=== PATIENT | female | born 1985 | race Caucasian/White ===

== ENCOUNTER 2017-11-22 00:19 | Emergency (ER) | payer OTHER ==
--- NOTE | 2017-11-22 01:14 | XRAY Report ---
Reason: pain, injury Procedure Date: 11/22/2017 Accession Number: [id number] / [id number] Procedure: XR - Knee 3 View LT CPT Code: FULL RESULT: EXAM: LEFT KNEE RADIOGRAPHY EXAM DATE: 11/22/2017 12:44 AM. CLINICAL HISTORY: Pain, injury. COMPARISON: None. TECHNIQUE: 3 views. FINDINGS: Bones: Normal. No fractures or bone lesions. Joints: Moderate effusion. No lipohemarthrosis. The joint spaces are preserved. Soft Tissues: Normal. No soft tissue swelling. IMPRESSION: Moderate joint effusion. No evidence of acute fracture. [facility]
--- NOTE | 2017-11-22 01:19 | ED Physician Documentation ---
PD HPI LOWER EXT INJURY - Stated complaint Stated Complaint: LT KNEE PAIN - Chief complaint Chief Complaint: Ext Problem - Treatment prior to arrival Treatment prior to arrival: 31-year-old female presents the emergency department with complaints of ongoing left knee pain after injured it 1 week ago. The patient twisted her knee and since then has had swelling and discomfort in the knee. No new injury. The patient denies injury to the hip ankle or foot. Symptoms are described as moderate. No other associated symptoms. Review of Systems Constitutional: denies: Fever Eyes: denies: Discharge Cardiac: denies: Chest pain / pressure Respiratory: denies: Cough GI: denies: Abdominal Pain Musculoskeletal: reports: Extremity pain, Joint pain, Joint swelling Neurologic: denies: Focal weakness PD PAST MEDICAL HISTORY - Past Medical History Past Medical History: No - Past Surgical History Past Surgical History: Yes /[employer]: section - Social History Does the pt smoke?: No Smoking Status: Never smoker Does the pt drink ETOH?: No Does the pt have substance abuse?: No - Immunizations Immunizations are current?: Yes - POLST Patient has POLST: No PD ED PE NORMAL - General General: Alert and oriented X 3, No acute distress - HEENT HEENT: Atraumatic, PERRL, EOMI, Ears normal - Derm Derm: Normal color, Warm and dry, No rash - Extremities Extremities: No deformity. No: No tenderness to palpate (The patient has tenderness to palpation of the left knee with a joint effusion. There is no evidence of erythematous changes or erythema or signs of an acute infection. The patient has limited range of motion secondary to pain. The joint appears stable. A comprehensive exam is limited secondary to the patient's pain. The patient has no pain in her hip, ankle or foot. The patient has a normal dorsalis pedis pulse and brisk cap refill) - Neuro Neuro: Alert and oriented X 3 - Psych Psych: Normal affect Results - Vitals Vitals: Vital Signs - 24 hr 11/22/ 00:24 Temperature 36.0 C L Heart Rate 84 Respiratory 16 Rate Blood Pressure 116/77 O2 Saturation 98 Oxygen O2 Source Room air - Rads (name of study) Knee Radiology: Final report received PD MEDICAL DECISION MAKING - ED course ED course: The patient appears to have a sprain, and exam is limited secondary to discomfort and swelling. The patient appears appropriate for discharge. The patient already has a knee immobilizer at home. I encouraged that she uses it. I advised that [place] to [place]opedics. The patient understands and agrees. I discussed warning signs and recommended returning to the emergency department immediately for worsening or any concerns. - Sepsis Event Vital Signs: Vital Signs - 24 hr 11/22/17 00:24 Temperature 36.0 C L Heart Rate 84 Respiratory 16 Rate Blood Pressure 116/77 O2 Saturation 98 Oxygen O2 Source Room air Departure - Departure Disposition: 01 Home, Self Care Clinical Impression: Knee strain Qualifiers: Encounter type: initial encounter Laterality: unspecified laterality Qualified Code(s): S86.919A - Strain of unspecified muscle(s) and tendon(s) at lower leg level, unspecified leg, initial encounter Condition: Good Instructions: ED Sprain Knee Comments: Please follow-up with orthopedics for reevaluation of your injury. [place]. Please return to the emergency department immediately for worsening symptoms or any concerns
[2017-11-22 01:29] VITALS: BP 114/80
== END 2017-11-22 01:29 | disposition home or self-care (01) ==
LOC: ED 00:19
DX: S86.919A Strain of unspecified muscle(s) and tendon(s) at lower leg level, unspecified leg, initial encounter (principal); X50.1XXA Overexertion from prolonged static or awkward postures, initial encounter
CPT/HCPCS: 99282; 99283

== ENCOUNTER 2017-12-16 14:43 | Outpatient (CLI) | payer OTHER ==
--- NOTE | 2017-12-17 09:08 | MRI Report ---
Reason: SPRAIN OF UNSPECIFIED SITE OF LEFT KNEE Procedure Date: 12/16/2017 Accession Number: [id number] / [id number] Procedure: MRI - Knee LT W/O CPT Code: FULL RESULT: EXAM: LEFT KNEE MRI WITHOUT CONTRAST EXAM DATE: 12/16/2017 03:25 PM. CLINICAL HISTORY: Sprain of unspecified site of left knee. COMPARISON: None. TECHNIQUE: Multiplanar, multisequence T1-weighted and fluid-sensitive sequences of the knee without contrast. Other: None. FINDINGS: Bones: There is a minimally depressed, nondisplaced fracture of the superomedial lateral tibial condyle. There is surrounding marrow edema. There is a contusion of the adjacent lateral femoral condyle. Articular Cartilage: Unremarkable. Medial Meniscus: The medial meniscus is intact. Lateral Meniscus: The lateral meniscus is intact. Cruciate Ligaments: The anterior and posterior cruciate ligaments are intact. Collateral Ligaments: The medial collateral and lateral collateral ligamentous structures are intact. Tendons: The quadriceps, patellar, semimembranosus, and popliteus tendons are unremarkable. Musculature: No edema or fatty atrophy. Other: Small joint effusion. No popliteal cyst. No loose bodies. The medial and lateral retinacula are intact. The subcutaneous tissues and fat pads are unremarkable. IMPRESSION: 1. Minimally depressed, nondisplaced fracture of the anteromedial lateral tibial condyle and adjacent contusion of the lateral femoral condyle. 2. Menisci and ligaments appear intact. [facility] MUSCULOSKELETAL RADIOLOGY SECTION
== END 2017-12-16 14:44 | disposition home or self-care (01) ==
LOC: DI 14:43
PROVIDERS: ATTEND Physician Assistant Medical
DX: S82.125A Nondisplaced fracture of lateral condyle of left tibia, initial encounter for closed fracture (principal); S70.12XA Contusion of left thigh, initial encounter